=== PATIENT | female | born 1960 | race Caucasian/White ===

== ENCOUNTER → 2018-07-16 | Outpatient (CLI) | payer BC ==
--- NOTE | 2018-07-19 13:20 | MM ---
Reason for exam: screening (asymptomatic). Last mammogram was performed 3 years and 7 months ago. History: Patient is postmenopausal. Physical Findings: A clinical breast exam by your physician is recommended on an annual basis and results should be correlated with mammographic findings. MG Screening Mammo w CAD Bilateral CC and MLO view(s) were taken. Prior study comparison: December 06, 2014, bilateral MG screening mammo w CAD. There are scattered fibroglandular densities. There is chronic nodularity bilaterally. No significant changes when compared with prior studies. ASSESSMENT: Negative, BI-RAD 1 RECOMMENDATION: Routine screening mammogram of both breasts in 1 year.
== END | disposition home or self-care (01) ==
LOC: RADMAMWWP 16:15
PROVIDERS: ATTEND Internal Medicine
DX: Z12.31 Encounter for screening mammogram for malignant neoplasm of breast (principal)
CPT/HCPCS: 77067

== ENCOUNTER → 2018-08-31 | Outpatient (CLI) | payer BC ==
--- NOTE | 2018-08-31 21:22 | CONS ---
CONSULTATION 54-year-old female patient with severe obstructive sleep apnea with an AHI of 89, coming in again after 4 years of interruption. The patient, during these seizures, have been successfully treated with a BiPAP pressure of 25/21 cm of water. On today's evaluation, I noted the patient has gained around 15 pounds since her last evaluation. She used to weigh around 208 and currently she is up to 222. Nevertheless, despite that, she has been very compliant with BiPAP therapy. The patient has been averaging around 7.3 hours of BiPAP use per night. She is leaking 7 L/minute only with a tidal volume of 450 minute ventilation of 7.1, and her AHI while on treatment is down to 0.7. She is using a small size Simplus full face mask. Basically she is benefiting from the treatment. Page score is down to 1. No hypersomnia or sleepiness. No sleep attacks. No tiredness or fatigue during the day and she has been very well treated. She goes to bed around 10 p.m., waking up at 6 a.m. in the morning. She is averaging about 7-8 hours of sleep. She sleeps on her side. Sleep is none fragmented at this point in time. She has no restlessness in her lower extremities. No anxiety. No depression. PAST MEDICAL HISTORY: 1. Obstructive sleep apnea, severe with an AHI of 89, currently on a BiPAP at a pressure of 25/21 cm of water. 2. Obesity. 3. Hypertension. PAST SURGICAL HISTORY: Includes carpal tunnel bilaterally and ankle surgery with plate and screws. DRUG ALLERGIES: Not known. OUTPATIENT MEDICATION: Includes lisinopril and vitamin D3. SOCIAL HISTORY: The patient is a nonsmoker. No history of alcohol. No history of IV drugs. FAMILY HISTORY: Negative for sleep apnea. REVIEW OF SYSTEMS: Fourteen-point review of system was done. Positive findings are mentioned above in the history of present illness. No snoring while on the BiPAP treatment. No apneas while on BiPAP. No insomnia. No choking or gasping for air. No restlessness in lower extremities. No sleepwalking or sleep talking. No dry mouth. No anxiety. No panic attacks. No heartburn. No claustrophobia. No irritability. No depression. No problems with concentration and memory. PHYSICAL EXAMINATION: BP is 153/75, pulse 63, respirations 18, temperature 97.8. Weight is 222. Height is 5 feet 1 inch. Page score is down to 1. BMI is 41.9. Neck size 17 inches and saturation 96% on room air. GENERAL APPEARANCE: Calm, comfortable. HEAD is atraumatic, normocephalic. NECK: Supple. Short neck. There is crowding of posterior pharynx. There is no goiter or neck masses. LUNGS: Diminished breath sounds. Otherwise clear. HEART: Sounds regular rate and rhythm. Normal S1, S2. No S3. No murmurs. ABDOMEN: Soft, nontender. No organomegaly. EXTREMITIES: No edema. No cyanosis or clubbing. NEUROLOGIC: She is alert and oriented x3. There is no focal neurological deficits. PSYCHIATRIC: Negative for anxiety or depression. IMPRESSION: 1. Severe obstructive sleep apnea with an AHI of 89, currently on a BiPAP pressure of 25/21 cm of water. The patient is successfully treated. Compliance data was checked. 2. Hypersomnia, recovered. 3. Obesity with interval weight gain. Current BMI is up to 41.9. 4. Hypertension. PLAN: 1. Encourage weight loss. 2. Continue BiPAP at the same setting. 3. Renew the patient's BiPAP supplies including a Simplus full-face mask, small size. In addition to filters and tubing. 4. Implement good sleep hygiene measures. 5. Patient is well treated. No need for any further adjustments at this point in time. 6. See me back in a year's time, earlier if needed. Refills were given. MMODL / IJN: [id number] /
== END ==
LOC: SLEEP 15:18
PROVIDERS: ATTEND Internal Medicine Critical Care Medicine
DX: G47.33 Obstructive sleep apnea (adult) (pediatric) (principal); E66.9 Obesity, unspecified; I10 Essential (primary) hypertension; Z99.89 Dependence on other enabling machines and devices; Z68.41 Body mass index [BMI] 40.0-44.9, adult; Z79.899 Other long term (current) drug therapy
CPT/HCPCS: 99211

== ENCOUNTER → 2020-09-04 | Outpatient (CLI) | payer BC ==
--- NOTE | 2020-09-07 13:04 | MM ---
Reason for exam: screening (asymptomatic). Last mammogram was performed 2 years and 2 months ago. History: Patient is postmenopausal. Physical Findings: A clinical breast exam by your physician is recommended on an annual basis and results should be correlated with mammographic findings. MG Screening Mammo w CAD Bilateral CC and MLO view(s) were taken. Prior study comparison: July 16, 2018, bilateral MG screening mammo w CAD. December 06, 2014, bilateral MG screening mammo w CAD. There are scattered fibroglandular densities. There is chronic nodularity bilaterally. No significant changes when compared with prior studies. ASSESSMENT: Benign, BI-RAD 2 RECOMMENDATION: Routine screening mammogram of both breasts in 1 year.
== END | disposition home or self-care (01) ==
LOC: RADMAMWWP 07:10
PROVIDERS: ATTEND Internal Medicine
DX: Z12.31 Encounter for screening mammogram for malignant neoplasm of breast (principal); Z78.0 Asymptomatic menopausal state
CPT/HCPCS: 77067

== ENCOUNTER → 2022-09-23 | Outpatient (CLI) | payer BC ==
--- NOTE | 2022-09-23 17:08 | P.SLEEP ---
History of Present Illness H&P Date: 09/23/22 This is a 62-year-old female patient was coming in to see me regarding her obstructive sleep apnea. The patient will is known to me and her last evaluation with me at the sleep Center was in 2014. At that time, the patient was diagnosed having severe symptomatic obstructive sleep apnea with an AHI of 89. The patient was subsequently given BiPAP therapy and the patient was utilizing her BiPAP at a pressure of 25/21 cm of water. Her treatment has remained successful over the years and more recently, her machine is exceeded his altered life expectancy and the patient is in need for supplies and for that reason she came into the sleep Center for reevaluation. Note that the patient has gained weight over the years. She is to weigh around 208 pounds. Current body weight is 222. Nevertheless, despite her weight gain, treatment has remained successful. Based on a 30 day compliancy check on her BiPAP machine, the patient has been averaging around 7.2 hours of BiPAP use per night with a leak of 14 L/m and her generator tidal volume is 400 mL with a respiratory rate of 16 and a minute ventilation of 6.5 L/m. Her AHI is down to 1. The patient is using a Simplus fullface mask. The patient has no major hypersomnia or sleepiness during the day. No snoring while on the BiPAP machine. No sleep paralysis did not a sebaceous. No sleepwalking. She is going to bed around 11 PM waken up 6 AM in the morning. No grinding of the teeth. No anxiety or depression. No panic attacks. No chest pain or shortness of breath or heartburn overnight. No issues with memory or concentration. The patient does not take any naps during the day. Review of Systems Constitutional: Reports fatigue, Reports weight gain Eyes: denies as per HPI, denies blurred vision, denies bulging eye, denies decreased vision, denies diplopia, denies discharge, denies dry eye, denies irritation, denies itching, denies pain, denies photophobia, denies loss of peripheral vision, denies loss of vision, denies tunnel vision/blind spots Ears: deny: decreased hearing, ear discharge, earache, tinnitus Ears, nose, mouth and throat: Reports as per HPI Breasts: absent: as per HPI, change in shape, gynecomastia, masses, nipple discharge, pain, skin changes, swelling Cardiovascular: Reports as per HPI Respiratory: Reports sleep apnea Gastrointestinal: Reports as per HPI Genitourinary: Reports as per HPI Menstruation: Reports as per HPI Musculoskeletal: Reports as per HPI Musculoskeletal: absent: ankle pain, ankle stiffness, ankle swelling Integumentary: Reports as per HPI Neurological: Reports as per HPI Psychiatric: Reports as per HPI Endocrine: Reports as per HPI Past Medical History Past Medical History: Hyperlipidemia, Hypertension, Sleep Apnea/CPAP/BIPAP Past Surgical History: Orthopedic Surgery (Patient has undergone ORIF over the right leg and bilateral carpal tunnel release) Smoking Status: Never smoker Past Alcohol Use History: None Reported Past Drug Use History: None Reported Medications and Allergies Home Medications and Allergies Comment(s): lisinopril 20 mg by mouth daily, Lipitor 10 mg by mouth daily Physical Exam BP is 172/78, pulse is 79, respirations 12, temperature 97.4, weight is 222 pounds, BMI 42.6, [place] score is at 3, side of the neck is 17 inches. The patient appeared well nourished and normally developed. Vital signs as documented. Head exam is unremarkable. No scleral icterus or corneal arcus noted. Neck is without jugular venous distension, thyromegaly, or carotid bruits. Patient is a Mallampati class IV with significant crowding of posterior pharynx. Carotid upstrokes are brisk bilaterally. Lungs are clear to auscultation and percussion. Cardiac exam reveals the PMI to be normally sized and situated. Rhythm is regular. First and second heart sounds normal. No murmurs, rubs or gallops. Abdominal exam reveals normal bowel sounds, no masses, no organomegaly and no aortic enlargement. Extremities are nonedematous and both femoral and pedal pulses are normal.Examination of the skin revealed no evidence of significant rashes, suspicious appearing nevi or other concerning lesions.Neurologically, the patient is awake and alert and the patient does not have any focal neurological deficit. Cranial nerves are essentially intact. Assessment and Plan Plan: Severe symptomatic ROHIT with an AHI of 89. The patient was successfully treated with BiPAP over the years at a pressure of 25/21 cm of water. Hypersomnia, improved with BiPAP therapy Obesity with a weight of 222 and a body mass index of 42.6 Hypertension Hyperlipidemia Plan The patient is to update her BiPAP machine. I'm going to order another BiPAP machine which she'll be at the same pressure of 25/21 cm of water and will keep the same mask interface for now. Encourage weight loss. Maintaining good sleep hygiene measures. The rest of the comorbidities are unchanged. She is being managed and treated for hypertension and hyperlipidemia. Blood pressure needs to be closely monitored. Encourage losing weight. See her back in 30 is 90 days after obtaining her new BiPAP machine. Her treatment remained successful for now. We'll continue to follow. Sleep Note - Sleep Note Sleep Note: Temperature: Pulse Rate: Respiratory Rate: Blood Pressure: SpO2: Height: Weight: BMI: Neck Circumference:
== END ==
LOC: 3 N SLEEP 15:03
PROVIDERS: ATTEND Internal Medicine Critical Care Medicine
DX: G47.33 Obstructive sleep apnea (adult) (pediatric) (principal); E78.5 Hyperlipidemia, unspecified; I10 Essential (primary) hypertension; E66.9 Obesity, unspecified; Z68.41 Body mass index [BMI] 40.0-44.9, adult; Z99.89 Dependence on other enabling machines and devices
CPT/HCPCS: 99211